=== PATIENT | male | born 1960 | race Caucasian/White ===

== ENCOUNTER 2022-01-24 18:29 | Inpatient (IN) | payer OTHER ==
[2022-01-24 18:35] VITALS: BMI 21.7
[2022-01-24 21:59] LABS: BASO % 0.8 % (0-2.0); EOS % 3.5 % (0-4.5); HEMATOCRIT 39.8 % (35.4-49); HEMOGLOBIN 13.2 GM/dL (11.7-16.9); LYMPH % 23.8 % (8-40); MCHC 33.1 g/dl (32.0-35.9); MEAN CELL VOLUME 84.6 fl (80-96); MEAN PLT VOLUME 8.5 fl (7.5-11.1); MONO % 17.3 % (3.8-10.2); NEUT % 54.6 % (42.8-82.8); PLATELET COUNT 134 10^3/uL (134-434); RBC 4.71 M/mm3 (4.00-5.60); RDW 16.3 % (11.9-15.9); WHITE BLOOD COUNT 6.5 K/mm3 (4.0-10.0)
[2022-01-24 22:05] LABS: PH,URINE 5.5 (5.0-8.0); URINE APPEARANCE CLEAR; URINE BILIRUBIN NEGATIVE (NEGATIVE); URINE COLOR YELLOW; URINE GLUCOSE (UA) NEGATIVE (NEGATIVE); URINE KETONE NEGATIVE (NEGATIVE); URINE LEUK ESTERASE NEGATIVE (NEGATIVE); URINE NITRITE NEGATIVE (NEGATIVE); URINE PROTEIN NEGATIVE (NEGATIVE)
[2022-01-24 22:22] LABS: ALBUMIN 2.6 g/dl (3.4-5.0); CALCIUM 9.6 mg/dL (8.5-10.1)
[2022-01-24 22:23] LABS: ANISOCYTOSIS 2+; MACROCYTOSIS 0; PLATELET ESTIMATE DECREASED
[2022-01-24 22:24] LABS: BLOOD UREA NITROGEN 14.7 mg/dL (7-18)
[2022-01-24 22:26] LABS: CREATININE 0.9 mg/dL (0.55-1.3)
[2022-01-24 22:26] LABS: COCAINE, UR NEGATIVE (NEGATIVE); METHADONE, UR POSITIVE (NEGATIVE); OPIATES, URI POSITIVE (NEGATIVE); PHENCYCLIDINE,URINE NEGATIVE (NEGATIVE); URINE AMPHETAMINES NEGATIVE (NEGATIVE); URINE BARBITURATES NEGATIVE (NEGATIVE); URINE BENZODIAZEPINES NEGATIVE (NEGATIVE)
[2022-01-24 22:28] LABS: BILIRUBIN,TOTAL 1.7 mg/dL (0.2-1); TOT PROT 9.4 g/dl (6.4-8.2)
[2022-01-25] MEDS ORDERED: SENNOSIDES 8.6MG TABLET (FP) PO PRN (02:25)
[2022-01-25] MEDS ORDERED: IBUPROFEN 400 MG TABLET (FP) PO PRN (02:30)
[2022-01-25] MEDS ORDERED: methaDONE HCL 10 MG TABLET PO ONE (02:56)
[2022-01-25] MEDS ORDERED: LORazepam 1 MG TABLET PO PRN (02:56)
[2022-01-25] MEDS ORDERED: cloNIDine HCL 0.1 MG TABLET PO PRN (02:56)
[2022-01-25] MEDS ORDERED: methaDONE HCL 10 MG TABLET ONE (03:38)
[2022-01-25] MEDS: LORazepam 1 MG TABLET PO SCH ×3 (05:55→16:55)
[2022-01-25] MEDS ORDERED: LORazepam 1 MG TABLET ONE (05:58)
[2022-01-25] MEDS ORDERED: diazePAM CARPU-JECT 10 MG/2 ML DISP.SYRIN IVPUSH ONE (06:09)
[2022-01-25] MEDS ORDERED: diazePAM CARPU-JECT 10 MG/2 ML DISP.SYRIN ONE (06:26)
[2022-01-25 07:27] LABS: INR 0.97 (0.83-1.09); PROTHROMBIN TIME (PATIENT) 11.1 SEC (9.7-13.0)
[2022-01-25 07:30] LABS: ACTIVATED PTT 32.4 SECONDS (25.2-36.5)
[2022-01-25 07:32] LABS: CALCIUM 9.1 mg/dL (8.5-10.1)
[2022-01-25 07:33] LABS: MAGNESIUM 1.9 mg/dL (1.8-2.4)
[2022-01-25 07:36] LABS: CREATININE 0.9 mg/dL (0.55-1.3); PHOSPHOROUS 3.1 mg/dL (2.5-4.9)
[2022-01-25 07:54] LABS: HEMATOCRIT 38.4 % (35.4-49); HEMOGLOBIN 12.9 GM/dL (11.7-16.9); MCH 28.2 pg (25.7-33.7); MCHC 33.5 g/dl (32.0-35.9); MEAN CELL VOLUME 84.1 fl (80-96); MEAN PLT VOLUME 9.2 fl (7.5-11.1); PLATELET COUNT 133 10^3/uL (134-434); RBC 4.56 M/mm3 (4.00-5.60); RDW 16.3 % (11.9-15.9); WHITE BLOOD COUNT 6.2 K/mm3 (4.0-10.0)
[2022-01-25] MEDS ORDERED: FOLIC ACID 1 MG TABLET (FP) PO SCH (10:00)
[2022-01-25] MEDS ORDERED: NICOTINE 21 MG/24 HOURS TOPICAL PATCH TD SCH (10:00)
[2022-01-25] MEDS ORDERED: ENOXAPARIN NA (PORCINE) 40 MG/0.4 ML DISP.SYRIN SQ SCH (10:00)
[2022-01-25] MEDS ORDERED: THIAMINE HCL 200 MG/2 ML VIAL IVPB SCH (10:00)
[2022-01-25 14:39] VITALS: BP 126/80; PULSE 86; RESP 18; TEMP 97.8
[2022-01-26] MEDS ORDERED: LORazepam 1 MG TABLET PO SCH (05:00)
[2022-01-27] MEDS ORDERED: LORazepam 0.5 MG TABLET PO PRN
[2022-01-27] MEDS ORDERED: LORazepam 0.5 MG TABLET PO SCH (05:00)
[2022-01-27] MEDS ORDERED: methaDONE HCL 10 MG TABLET PO ONE (10:00)
[2022-01-28] MEDS ORDERED: LORazepam 0.5 MG TABLET PO ONE (05:00)
[2022-01-28] MEDS ORDERED: THIAMINE HCL 100 MG TABLET (FP) PO SCH (10:00)
[2022-01-29] MEDS ORDERED: methaDONE HCL 10 MG TABLET PO ONE (10:00)
== END 2022-01-25 22:45 | disposition left against medical advice (07) ==
LOC: JER 18:29 → JERBED 23:19 → J5S 01-25 08:19 → J6S 01-25 14:24 → JERBED 01-25 21:25 → J6S 01-25 21:26
PROVIDERS: ADMIT Internal Medicine; ATTEND Internal Medicine
DX: R17 Unspecified jaundice (principal); F17.210 Nicotine dependence, cigarettes, uncomplicated; R05.9 Cough, unspecified; E43 Unspecified severe protein-calorie malnutrition; F10.20 Alcohol dependence, uncomplicated; F11.20 Opioid dependence, uncomplicated; R74.01 Elevation of levels of liver transaminase levels; Z21 Asymptomatic human immunodeficiency virus [HIV] infection status; Z68.21 Body mass index [BMI] 21.0-21.9, adult; Z53.29 Procedure and treatment not carried out because of patient's decision for other reasons; R64 Cachexia; Z91.14 Patient's other noncompliance with medication regimen
CPT/HCPCS: 36415; 76705-TC; 80048; 80053; 80307; 81003; 83735; 84100; 85025; 85027; 85610; 85730; 86359; 86360; 86705; 86803; 87340; 87517; 87522; 93005; 93010; 99285-25; C9803-CS; U0003; U0005

== ENCOUNTER 2022-01-26 12:08 | Inpatient (IN) | payer OTHER ==
[2022-01-26 14:03] VITALS: BMI 18.4
[2022-01-26] MEDS ORDERED: BISMUTH SUBSALICYLATE 524 MG/30 ML PO PRN (15:23)
[2022-01-26] MEDS ORDERED: NALOXONE HCL (KLOXXADO) 8 MG SPRAY NS PRN (15:23)
[2022-01-26] MEDS ORDERED: NICOTINE 10 MG CARTRIDGE (INHALER) IH PRN (15:23)
[2022-01-26] MEDS ORDERED: DICYCLOMINE HCL 10 MG CAPSULE PO PRN (15:23)
[2022-01-26] MEDS ORDERED: methaDONE HCL 10 MG TABLET (FOR DETOX USE ONLY) PO ONE (15:23)
[2022-01-26] MEDS ORDERED: cloNIDine HCL 0.1 MG TABLET PO PRN (15:23)
[2022-01-26] MEDS ORDERED: IBUPROFEN 400 MG TABLET (FP) PO PRN (15:23)
[2022-01-26] MEDS ORDERED: diazePAM 5 MG TABLET PO PRN ×2 (15:23→15:34)
[2022-01-26] MEDS ORDERED: ACETAMINOPHEN 325 MG TABLET (FP) PO PRN ×2 (15:23)
[2022-01-26] MEDS ORDERED: MAG HYDROX/AL HYDROX/SIMETH 30 ML UNIT-DOSE CUP PO PRN (15:23)
[2022-01-26] MEDS ORDERED: METHOCARBAMOL 500 MG TABLET PO PRN (15:23)
[2022-01-26] MEDS ORDERED: IBUPROFEN 600 MG TABLET (FP) PO PRN (15:23)
[2022-01-26] MEDS ORDERED: MAGNESIUM HYDROX 2400MG/30ML ORAL SUSPENSION 30 ML CUP PO PRN (15:23)
[2022-01-26] MEDS ORDERED: BENZOCAINE/MENTHOL (CHLORASEPTIC ) LOZENGE MM PRN (15:23)
[2022-01-26] MEDS ORDERED: MAGNESIUM CITRATE 300 ML BOTTLE PO PRN (15:23)
[2022-01-26] MEDS ORDERED: ONDANSETRON *ODT* 4 MG TABLET SL PRN (15:23)
[2022-01-26] MEDS ORDERED: LOPERAMIDE HCL 2 MG CAPSULE PO PRN (15:23)
[2022-01-26] MEDS ORDERED: methaDONE HCL 10 MG TABLET (FOR DETOX USE ONLY) ONE (16:22)
[2022-01-26] MEDS ORDERED: NICOTINE 21 MG/24 HOURS TOPICAL PATCH ONE (16:22)
[2022-01-26] MEDS: NICOTINE 21 MG/24 HOURS TOPICAL PATCH TD SCH (16:27)
[2022-01-26] MEDS: diazePAM 5 MG TABLET PO SCH ×2 (18:00→22:30)
[2022-01-26] MEDS: hydrOXYzine PAMOATE 25 MG CAPSULE (FP) PO SCH ×3 (18:52→23:41)
[2022-01-26] MEDS ORDERED: THIAMINE HCL 100 MG TABLET (FP) PO SCH (22:00)
[2022-01-26] MEDS ORDERED: MELATONIN 5 MG TABLETS PO SCH (22:00)
[2022-01-26] MEDS: METHYL SALICYLATE/MENTHOL OINT 30 GM TUBE TP SCH (22:32)
[2022-01-27] MEDS: diazePAM 5 MG TABLET PO SCH (05:43)
[2022-01-27] MEDS: hydrOXYzine PAMOATE 25 MG CAPSULE (FP) PO SCH ×2 (05:44→10:40)
[2022-01-27 09:27] VITALS: BP 123/73; PULSE 103; RESP 17; TEMP 97.1
[2022-01-27] MEDS ORDERED: PRENATAL VITAMINS W/ FOLIC ACID TABLET (FP) PO SCH (10:00)
[2022-01-27] MEDS: METHYL SALICYLATE/MENTHOL OINT 30 GM TUBE TP SCH (10:40)
[2022-01-27] MEDS: NICOTINE 21 MG/24 HOURS TOPICAL PATCH TD SCH (10:40)
[2022-01-27 10:45] LABS: ALBUMIN 2.7 g/dl (3.4-5.0); CALCIUM 9.5 mg/dL (8.5-10.1); CREATININE 0.9 mg/dL (0.55-1.3)
[2022-01-27 10:46] LABS: BILIRUBIN,TOTAL 1.7 mg/dL (0.2-1); BLOOD UREA NITROGEN 18.7 mg/dL (7-18); TOT PROT 9.3 g/dl (6.4-8.2)
[2022-01-27 10:49] LABS: HEMATOCRIT 39.6 % (35.4-49); HEMOGLOBIN 13.3 GM/dL (11.7-16.9); MCH 28.5 pg (25.7-33.7); MCHC 33.7 g/dl (32.0-35.9); MEAN CELL VOLUME 84.5 fl (80-96); MEAN PLT VOLUME 8.7 fl (7.5-11.1); PLATELET COUNT 175 10^3/uL (134-434); RBC 4.68 M/mm3 (4.00-5.60); RDW 15.9 % (11.9-15.9); WHITE BLOOD COUNT 6.6 K/mm3 (4.0-10.0)
[2022-01-28] MEDS ORDERED: diazePAM 5 MG TABLET PO SCH (06:00)
[2022-01-28] MEDS ORDERED: methaDONE HCL 10 MG TABLET (FOR DETOX USE ONLY) PO ONE (10:00)
[2022-01-29] MEDS ORDERED: diazePAM 5 MG TABLET PO SCH (06:00)
[2022-01-30] MEDS ORDERED: diazePAM 5 MG TABLET PO ONE (06:00)
[2022-01-30] MEDS ORDERED: methaDONE HCL 10 MG TABLET (FOR DETOX USE ONLY) PO ONE (10:00)
== END 2022-01-27 10:40 | disposition left against medical advice (07) | DRG 770 ==
LOC: SUATTDRO 12:08 → YASAS 12:08 → Y6N 15:39
PROVIDERS: ADMIT Allergy & Immunology; ATTEND Surgery
PROC: HZ2ZZZZ Detoxification Services for Substance Abuse Treatment (ICD-10-PCS; principal; 2022-01-26)
DX: F10.230 Alcohol dependence with withdrawal, uncomplicated (principal); F11.20 Opioid dependence, uncomplicated; F17.210 Nicotine dependence, cigarettes, uncomplicated; Z21 Asymptomatic human immunodeficiency virus [HIV] infection status; R17 Unspecified jaundice; B18.2 Chronic viral hepatitis C; R63.4 Abnormal weight loss; Z68.1 Body mass index [BMI] 19.9 or less, adult; Z28.310 Unvaccinated for COVID-19; Z28.9 Immunization not carried out for unspecified reason
CPT/HCPCS: 36415; 80053; 82962; 85027; 86780; 93005; 93010; 99282-25; C9803-CS; U0003; U0005

== ENCOUNTER 2022-02-28 00:18 | Emergency (ER) | payer OTHER ==
[2022-02-28 00:24] VITALS: BMI 18.4
[2022-02-28] MEDS ORDERED: LACTATED RINGERS SOLUTION 1000 ML INFUS.BAG IV ONE (01:09)
[2022-02-28] MEDS ORDERED: ALBUTEROL SO4 2.5/IPRATROPIUM 0.5 INH SOL 3 ML VIAL.NEB. NEB ONE ×2 (01:09→02:31)
[2022-02-28] MEDS ORDERED: MAGNESIUM SULF 50% (8.12 MEQ/2 ML-1 GM VIAL) IVPB ONE (01:16)
[2022-02-28 01:50] LABS: HEMATOCRIT 48.1 % (35.4-49); HEMOGLOBIN 16.8 GM/dL (11.7-16.9); MCH 29.6 pg (25.7-33.7); MEAN CELL VOLUME 84.7 fl (80-96); MEAN PLT VOLUME 7.7 fl (7.5-11.1); PLATELET COUNT 272 10^3/uL (134-434); RBC 5.68 M/mm3 (4.00-5.60); RDW 18.2 % (11.9-15.9); WHITE BLOOD COUNT 9.5 K/mm3 (4.0-10.0)
[2022-02-28 02:01] LABS: INR 1.3 (0.83-1.09)
[2022-02-28 02:02] LABS: ACTIVATED PTT 38.1 SECONDS (25.2-36.5)
[2022-02-28 02:07] LABS: VENOUS BASE EXCESS -4.1 mmol/L (-2-2); VENOUS O2 SATURATION 68.5 % (70-80); VENOUS PCO2 44.3 mmHg (38-52); VENOUS PH 7.317 (7.310-7.410)
[2022-02-28 02:24] LABS: CHLORIDE 107 mmol/L (98-107); SODIUM 139 mmol/L (136-145)
[2022-02-28 02:27] LABS: ALBUMIN 2.8 g/dl (3.4-5.0); CALCIUM 9.3 mg/dL (8.5-10.1)
[2022-02-28 02:28] LABS: ANION GAP 9 MMOL/L (8-16); BLOOD UREA NITROGEN 76.2 mg/dL (7-18); CO2 23 mmol/L (21-32); GLUCOSE,RANDOM 121 mg/dL (74-106); LIPASE 306 U/L (73-393); MAGNESIUM 2.9 mg/dL (1.8-2.4)
[2022-02-28 02:29] LABS: BILIRUBIN,DIRECT 15.5 mg/dL (0.0-0.2); CREATININE 3.4 mg/dL (0.55-1.3); PHOSPHOROUS 5.1 mg/dL (2.5-4.9); SGOT/AST 252 U/L (15-37); SGPT/ALT 675 U/L (13-61)
[2022-02-28 02:33] LABS: TOT PROT 10.5 g/dl (6.4-8.2)
[2022-02-28 02:34] LABS: ALK PHOS 577 U/L (45-117)
[2022-02-28 02:55] LABS: BILIRUBIN,TOTAL 23.2 mg/dL (0.2-1); LACTIC ACID 2.4 mmol/L (0.4-2.0)
[2022-02-28 03:34] LABS: MAGNESIUM 2.8 mg/dL (1.8-2.4)
[2022-02-28 04:08] LABS: ANISOCYTOSIS 2+; MACROCYTOSIS 0; TEAR DROP CELLS 1+
[2022-02-28] MEDS ORDERED: LACTULOSE 20 GM/30 ML UDC (FOR ORAL USE ONLY) PO ONE (04:39)
[2022-02-28 04:41] VITALS: RESP 20
[2022-02-28] MEDS ORDERED: LACTULOSE 20 GM/30 ML UDC (FOR ORAL USE ONLY) ONE (04:55)
[2022-02-28 05:43] VITALS: BP 139/88; PULSE 102; TEMP 98.2
== END 2022-02-28 05:48 | disposition short-term general hospital (02) ==
LOC: JER 00:18
PROC: 3E0F7GC Introduction of Other Therapeutic Substance into Respiratory Tract, Via Natural or Artificial Opening (ICD-10-PCS; principal; 2022-02-28)
PROC: 3E033NZ Introduction of Analgesics, Hypnotics, Sedatives into Peripheral Vein, Percutaneous Approach (ICD-10-PCS; 2022-02-28)
DX: K80.50 Calculus of bile duct without cholangitis or cholecystitis without obstruction (principal); R17 Unspecified jaundice; J44.1 Chronic obstructive pulmonary disease with (acute) exacerbation; B20 Human immunodeficiency virus [HIV] disease
CPT/HCPCS: 0241U-QW; 36415; 71045-TC-FY; 76705-TC; 80053; 80307; 82140; 82248; 82803; 83605; 83690; 83735; 83880; 84100; 84132; 84484; 85025; 85610; 85730; 86705; 86709; 86803; 86850; 86900; 86901; 87040; 87340; 87522; 93005; 93010; 99284-25